=== PATIENT | male | born 1965 | race Caucasian/White ===

== ENCOUNTER → 2024-01-13 15:20 | Outpatient (CLI) | payer BC, SELFPAY ==
--- NOTE | ~2024-01-13 | XR_ITS ---
EXAMINATION: XR knee LT 3V DATE: 01/13/2024 15:50 INDICATION: Chronic bilateral knee pain. TECHNIQUE: 3 views of left knee including standing views were obtained. COMPARISON: None. FINDINGS: There is varus angulation at the knee. No fracture. There is severe osteoarthritis of media l compartment, mild osteoarthritis of lateral compartment, and moderate osteoarthritis of patellofemo ral compartment. There is a moderate-sized knee joint effusion. IMPRESSION: 1. Severe left knee osteoarthritis. 2. Moderate-sized knee joint effusion. 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
--- NOTE | ~2024-01-13 | XR_ITS ---
EXAMINATION: XR knee RT 3V DATE: 01/13/2024 15:50 INDICATION: Chronic bilateral knee pain. TECHNIQUE: 3 views of right knee including standing views were obtained. COMPARISON: None. FINDINGS: There is varus angulation at the knee. No fracture. There is severe osteoarthritis of media l compartment, mild osteoarthritis of lateral compartment, moderate osteoarthritis of patellofemoral compartment. There is a moderate-sized knee joint effusion. IMPRESSION: 1. Severe right knee osteoarthritis. 2. Moderate-sized right knee joint effusion. Reviewed, dictated and finalized at location A. 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
== END ==
PROVIDERS: PCP Internal Medicine; Visit Provider Internal Medicine
DX: M16.0 Bilateral primary osteoarthritis of hip (principal); M25.461 Effusion, right knee; M25.462 Effusion, left knee
CPT/HCPCS: 73562